=== PATIENT | male | born 1980 | race Caucasian/White ===

== ENCOUNTER 2017-02-28 04:26 | Emergency (ER) | payer OTHER ==
[2017-02-28] MEDS ORDERED: NS 1,000 ML IV ONE (04:32)
--- NOTE | 2017-02-28 04:36 | EDPHY ---
H & P HPI/ROS: HPI CHIEF COMPLAINT: Syncope, facial trauma HISTORY OF PRESENT ILLNESS: This patient very pleasant 36-year-old male significant past medical history for bipolar disorder and panic attacks, he is on the couch watching a movie this evening approximately 30 minutes ago he got up off the couch rather quickly reported by his significant other took 2 steps and Passed out. Took 2 steps and fell forward with head strike against the ground. Hardwood floors. Positive LOC. No seizure activity. Denies alcohol this evening. States that approximately a year ago he had a syncopal episode. No previous seizure. He denies any preceding symptoms except for his vision becoming tunnel like prior to this happening. He states he woke up and next thing he knew EMS and police were over him. He denies any chest pain or shortness of breath, palpitations prior to syncope. patient states it felt like he was having a panic attack come on. Since arriving to the emergency room he has no complaints he states he feels fine. Tired. Past Medical History: Bipolar disorder, panic attack Past Surgical History: Denies recent surgical history Social History: denies daily use of alcohol, tobacco, does smoke marijuana and smoke tonight. Family History: Noncontributory ROS REVIEW OF SYSTEMS: A comprehensive 10 point review of systems is otherwise negative aside from elements mentioned in the history of present illness. Exam Constitutional triage nursing summary reviewed, vital signs reviewed, awake/ alert. Eyes normal conjunctivae and sclera, EOMI, PERRLA. HENT head/neck: no midline cervical spine pain, no step-offs, no crepitus, midface stable, does have tender to palpation over the left front incisor, however no fractured teeth, no malocclusion with bite, there is an intraoral lip laceration through the vermilion border on the left lower lip. 2 cm in length. Otherwise atraumatic head and neck exam. moist mucus membranes, no epistaxis, neck supple/ no meningismus, no raccoon eyes. Respiratory clear to auscultation bilaterally, normal breath sounds, no respiratory distress, no wheezing. Cardiovascular rate normal, regular rhythm, no murmur, no edema, distal pulses normal. Gastrointestinal soft, non-tender, no rebound, no guarding, normal bowel sounds, no distension, no pulsatile mass. Genitourinary no CVA tenderness. Musculoskeletal no midline vertebral tenderness, full range of motion, no calf swelling, no tenderness of extremities, no meningismus, good pulses, neurovascularly intact. Skin pink, warm, & dry, no rash, skin atraumatic. Neurologic awake, alert and oriented x 3, AAOx3, moves all 4 extremities equally, motor intact, sensory intact, CN II-XII intact, normal cerebellar, normal vision, normal speech. Psychiatric normal mood/affect. Heme/Lymph/Immune no lymphadenopathy. 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 Re-evaluation: EKG interpretation by me on record in [employer] system. Impression time of EKG 4:35 a.m., this is sinus rhythm rate of 74, there is a left anterior fascicular block present. Otherwise unremarkable EKG. No prolonged intervals. No signs of cardiac arrhythmia specifically no WPW or Brugada. No old EKG to compare this to. I do not appreciate acute ischemia on this EKG. Laceration Repair Procedure: Verbal Consent was obtained, Under sterile conditions, The patient had lidocaine with epinephrine used approximately 5ccs to local anesthetize the Left lower lip laceration 3cm Laceration. The wound was copiously irrigated with sterile fluid, the wound was explored for foreign bodies there were none visualized, the wound was explored with a sterile glove to the base. There are no deep structures involved, including no arterial injury. THREE 5.O absorbable gut interrupted Sutures were placed in this patient's laceration. He had good close approximation of the wound edges. He Tolerated this well. Patient understands sutures were dissolve on their own. Dry do not get any food or debris in this wound. ED x-ray chest one view: Negative for acute cardiopulmonary disease. CT scan of the head without IV contrast. The results of the study are negative for acute traumatic injury. The study was read by Dr. Valladares I viewed the images myself on the PACS system. 0527AM: Re-evaluation at this time patient resting comfortably no acute distress. No chest pain or shortness of breath no dizziness. X-ray of his chest, CT scan, troponin EKG are unremarkable. Laceration is been repaired. Absorbable sutures. Understands if he has another syncopal episode to return emergency room. Stay well-hydrated do not abruptly get up from a standing or lying position. He understands this. Source: Patient, EMS - Medical/Surgical History Hx Asthma: No Hx Chronic Respiratory Disease: No Hx Diabetes: No Hx Cardiac Disease: No Hx Renal Disease: No Hx Cirrhosis: No Hx Alcoholism: No Hx HIV/AIDS: No Hx Splenectomy or Spleen Trauma: No Other PMH: Bipolar - Social History Smoking Status: Current some day smoker Constitutional: Initial Vital Signs Temperature (C) 36.7 C 02/28/17 04:44 Heart Rate 76 02/28/17 04:44 Respiratory Rate 16 02/28/17 04:44 Blood Pressure 143/113 H 02/28/17 04:44 O2 Sat (%) 97 02/28/17 04:44 O2 Delivery Mode Room Air Allergies/Adverse Reactions: carbamazepine [From Tegretol] Allergy (Verified 01/03/16 01:45) Home Medications: Medication Instructions Recorded Lamictal 01/03/16 Medical Decision Making - Data Points Laboratory Results: Laboratory Results 02/28/17 04:42 02/28/17 04:42 02/28/17 02/28/17 04:42 04:42 WBC 5.83 10^3/uL 10^3/uL (3.80-9.50) RBC 4.83 10^6/uL 10^6/uL (4.40-6.38) Hgb 15.5 g/dL g/dL (13.7-17.5) Hct 43.2 % % (40.0-51.0) MCV 89.4 fL fL (81.5-99.8) MCH 32.1 pg pg (27.9-34.1) MCHC 35.9 g/dL g/dL (32.4-36.7) RDW 11.9 % % (11.5-15.2) Plt Count 192 10^3/uL 10^3/uL (150-400) MPV 10.2 fL fL (8.7-11.7) Neut % (Auto) 49.3 % % (39.3-74.2) Lymph % (Auto) 40.5 % % (15.0-45.0) Lynn % (Auto) 6.9 % % (4.5-13.0) Eos % (Auto) 2.6 % % (0.6-7.6) Baso % (Auto) 0.5 % % (0.3-1.7) Nucleat RBC Rel Count 0.0 % % (0.0-0.2) Absolute Neuts (auto) 2.88 10^3/uL 10^3/uL (1.70-6.50) Absolute Lymphs (auto) 2.36 10^3/uL 10^3/uL (1.00-3.00) Absolute Monos (auto) 0.40 10^3/uL 10^3/uL (0.30-0.80) Absolute Eos (auto) 0.15 10^3/uL 10^3/uL (0.03-0.40) Absolute Basos (auto) 0.03 10^3/uL 10^3/uL (0.02-0.10) Absolute Nucleated RBC 0.00 10^3/uL 10^3/uL (0-0.01) Immature Gran % 0.2 % % (0.0-1.1) Immature Gran # 0.01 10^3/uL 10^3/uL (0.00-0.10) Sodium 143 mEq/L mEq/L (134-144) Potassium 3.9 mEq/L mEq/L (3.5-5.2) Chloride 107 mEq/L mEq/L (97-110) Carbon Dioxide 22 mEq/l mEq/l (22-31) Anion Gap 14 mEq/L mEq/L (8-16) BUN 17 mg/dL mg/dL (7-23) Creatinine 1.1 mg/dL mg/dL (0.7-1.3) Estimated GFR > 60 Glucose 150 mg/dL H mg/dL (70-100) Calcium 9.1 mg/dL mg/dL (8.5-10.4) Magnesium 1.9 mg/dL mg/dL (1.6-2.3) Total Bilirubin 0.6 mg/dL mg/dL (0.1-1.4) Conjugated Bilirubin 0.3 mg/dL mg/dL (0.0-0.5) Unconjugated Bilirubin 0.3 mg/dL mg/dL (0.0-1.1) AST 26 IU/L IU/L (17-59) ALT 66 IU/L IU/L (21-72) Alkaline Phosphatase 43 IU/L IU/L (38-126) Creatine Kinase 88 IU/L IU/L (0-224) CK-MB (CK-2) Fraction 0.62 ng/mL ng/mL (0-3.19) Troponin I < 0.012 ng/mL ng/mL (0-0.034) Total Protein 6.4 g/dL g/dL (6.3-8.2) Albumin 4.1 g/dL g/dL (3.5-5.0) Medications Given: Discontinued Medications Sodium Chloride (Ns) 1,000 mls @ 0 mls/hr IV ONCE ONE; Wide Open PRN Reason: Protocol Stop: 02/28/17 04:33 Last Admin: 02/28/17 04:50 Dose: 1,000 mls Departure - Departure Disposition: Home, Routine, Self-Care Clinical Impression: Syncope Qualifiers: Syncope type: unspecified Qualified Code(s): R55 - Syncope and collapse Lip laceration Qualifiers: Encounter type: initial encounter Qualified Code(s): S01.511A - Laceration without foreign body of lip, initial encounter Condition: Good Instructions: Syncope (ED), Laceration (ED), Care For Your Stitches (ED) Additional Instructions: 1. You have absorbable sutures they do not need to be removed. They will dissolve on their own over the next 2 weeks. 2. Stay well-hydrated drink lots of fluids. Do not make abrupt movements from a sitting or lying position to standing position take it easy. 3.Return emergency room if you have another syncopal episode chest pain or shortness of breath. Referrals: Patient,NotPresent [Unknown] - As per Instructions
--- NOTE | 2017-02-28 04:48 | CPEKG ---
Heart Rate: 74 RR Interval: 811 P-R Interval: 188 QRSD Interval: 116 QT Interval: 408 QTC Interval: 453 P [place]: 42 QRS [place]: 268 T Wave [place]: 33 EKG Severity - ABNORMAL ECG - EKG Impression: SINUS RHYTHM EKG Impression: LEFT ANTERIOR FASCICULAR BLOCK Electronically Signed By: Anderson Rahman 28-Feb-2017 16:01:40
[2017-02-28 04:57] LABS: % IMMATURE GRANULYOCYTES 0.2 % (0.0-1.1); ABSOLUTE IMMATURE GRANULOCYTES 0.01 10^3/uL (0.00-0.10); ADD DIFF? NO; ADD MORPH? NO; ADD SCAN? NO; ATYPICAL LYMPHOCYTE FLAG 0 (0-99); FRAGMENT RBC FLAG 0 (0-99); HEMATOCRIT 43.2 % (40.0-51.0); HEMOGLOBIN 15.5 g/dL (13.7-17.5); LEFT SHIFT FLG 0 (0-99); LIPEMIA HEMOLYSIS FLAG 90 (0-99); MEAN CELL HEMOGLOBIN 32.1 pg (27.9-34.1); MEAN CELL HEMOGLOBIN CONCENTR. 35.9 g/dL (32.4-36.7); MEAN CELL VOLUME 89.4 fL (81.5-99.8); MEAN PLATELET VOLUME 10.2 fL (8.7-11.7); PLATELET CLUMPS FLAG 0 (0-99); PLATELET COUNT 192 10^3/uL (150-400); RED BLOOD CELL COUNT 4.83 10^6/uL (4.40-6.38); RED CELL DISTRIBUTION WIDTH 11.9 % (11.5-15.2)
[2017-02-28 05:08] LABS: ALANINE AMINOTRANSFERASE 66 IU/L (21-72); ALBUMIN 4.1 g/dL (3.5-5.0); ALKALINE PHOSPHATASE 43 IU/L (38-126); ANION GAP 14 mEq/L (8-16); ASPARTATE AMINOTRANSFERASE 26 IU/L (17-59); BILIRUBIN,TOTAL 0.6 mg/dL (0.1-1.4); BILIRUBIN-CONJUGATED 0.3 mg/dL (0.0-0.5); BILIRUBIN-UNCONJUGATED 0.3 mg/dL (0.0-1.1); CALCIUM 9.1 mg/dL (8.5-10.4); CARBON DIOXIDE 22 mEq/l (22-31); CHLORIDE 107 mEq/L (97-110); CREATININE 1.1 mg/dL (0.7-1.3); GLOMERULAR FILTRATION RATE > 60; GLUCOSE 150 mg/dL (70-100); MAGNESIUM 1.9 mg/dL (1.6-2.3); POTASSIUM 3.9 mEq/L (3.5-5.2); SODIUM 143 mEq/L (134-144); TOTAL PROTEIN 6.4 g/dL (6.3-8.2)
[2017-02-28 05:20] LABS: CREATINE KINASE-MB FRACTION 0.62 ng/mL (0-3.19); TROPONIN I < 0.012 ng/mL (0-0.034)
[2017-02-28 05:46] VITALS: BP 136/82; PULSE 78; RESP 20; TEMP 97.3; O2SAT 96
== END 2017-02-28 05:46 | disposition home or self-care (01) ==
LOC: EDUNIT#
PROC: 0CQ1XZZ Repair Lower Lip, External Approach (ICD-10-PCS; principal; 2017-02-28)
DX: S01.511A Laceration without foreign body of lip, initial encounter (principal); R55 Syncope and collapse; F17.200 Nicotine dependence, unspecified, uncomplicated; E86.9 Volume depletion, unspecified; W01.198A Fall on same level from slipping, tripping and stumbling with subsequent striking against other object, initial encounter; Y99.8 Other external cause status; Y93.89 Activity, other specified